=== PATIENT | female | born 1990 ===

== ENCOUNTER 2018-03-01 09:58 | Outpatient (CLI) | payer OTHER | END 2018-03-01 10:00 | disposition home or self-care (01) | LOC: SONOGRAMA 09:58 | DX: E04.1 Nontoxic single thyroid nodule (principal) ==

== ENCOUNTER 2018-05-06 18:23 | Emergency (ER) | payer OTHER ==
[~2018-05-06] VITALS: Ht 162.6 cm; Wt 99.8 kg
== END 2018-05-06 22:31 | disposition home or self-care (01) ==
LOC: ER 18:23
DX: N83.291 Other ovarian cyst, right side (principal); N94.6 Dysmenorrhea, unspecified; N93.8 Other specified abnormal uterine and vaginal bleeding; R10.2 Pelvic and perineal pain